=== PATIENT | female | born 2000 | race Two or more races ===

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

== ENCOUNTER 2021-04-18 23:04 | Observation (INO) | payer OTHER ==
[~2021-04-18 23:04] MED LIST: PROM25TA10 PO
[2021-04-18] MEDS ORDERED: IV RINGERS,LACTATED 1000ML 1,000 ML IV SCH (23:15)
[2021-04-18 23:31] LABS: BILIRUBIN,URINE SMALL (NEG); CLARITY,URINE CLOUDY; COLOR,URINE AMBER; NITRITE,URINE NEGATIVE (NEG); PH,URINE 7.5 (<5.0-8.0); PROTEIN,URINE 100 mg/dL (NEG-TRACE)
[2021-04-18 23:35] LABS: BARBITURATES NEG (NEG); BENZODIAZEPINES NEG (NEG); CANNABINOIDS NEG (NEG); COCAINE NEG (NEG); METHADONE NEG (NEG); OPIATES NEG (NEG); PHENCYCLIDINE NEG (NEG)
[2021-04-18 23:36] LABS: AMPHETAMINE/METHAMPHETAMINE NEG (NEG)
[2021-04-18 23:50] LABS: WBC,URINE TNTC /HPF (0-4)
[2021-04-18 23:51] LABS: BACTERIA,URINE MANY /HPF (0-FEW); HYALINE CASTS, URINE OCCASIONAL /HPF
[2021-04-26] MEDS ORDERED: IBUP-1060 PO (11:57)
[2021-04-26] MEDS ORDERED: DOCU-109 PO (11:57)
[2021-04-26] MEDS ORDERED: FERR325T14 PO (11:57)
== END 2021-04-19 03:30 | disposition home or self-care (01) ==
LOC: 3 SO LND 23:04
PROVIDERS: ADMIT Obstetrics & Gynecology; ATTEND Obstetrics & Gynecology
DX: O26.893 Other specified pregnancy related conditions, third trimester (principal); R42 Dizziness and giddiness; Z79.899 Other long term (current) drug therapy; Z3A.38 38 weeks gestation of pregnancy
CPT/HCPCS: 59025; 80307; 81001; 87086; 96360; 96361; G0378; G0379; J7120

== ENCOUNTER → 2021-04-21 | Outpatient (CLI) | payer OTHER ==
[~2021-04-21] MED LIST changes: +DOCU-109 PO; +FERR325T14 PO; +IBUP-1060 PO
== END ==
LOC: LAB 12:56
PROVIDERS: ATTEND Obstetrics & Gynecology
DX: Z01.812 Encounter for preprocedural laboratory examination (principal); O80 Encounter for full-term uncomplicated delivery; Z20.822 Contact with and (suspected) exposure to COVID-19
CPT/HCPCS: U0003; U0005